=== PATIENT | female | born 1950 | race Caucasian/White ===

== ENCOUNTER 2018-07-09 13:52 | Emergency (ER) | payer MEDICARE ==
[~2018-07-09] VITALS: Ht 172.7 cm; Wt 77.3 kg
[2018-07-09] MEDS ORDERED: ULTRAM50 MG PO (14:41)
== END 2018-07-09 15:01 | disposition home or self-care (01) ==
LOC: D.ER 13:52
DX: S82.832A Other fracture of upper and lower end of left fibula, initial encounter for closed fracture (principal); W18.31XA Fall on same level due to stepping on an object, initial encounter; Y93.89 Activity, other specified; Y92.019 Unspecified place in single-family (private) house as the place of occurrence of the external cause; S92.352A Displaced fracture of fifth metatarsal bone, left foot, initial encounter for closed fracture

== ENCOUNTER 2019-01-26 05:22 | Emergency (ER) | payer MEDICARE ==
[~2019-01-26] VITALS: Ht 172.7 cm; Wt 68.2 kg
[~2019-01-26 05:22] MED LIST: ULTRAM50 MG PO
[2019-01-26 05:27] VITALS: Ht 172.7 cm; Wt 68.2 kg
[2019-01-26 05:58] LABS: BASOPHILS 0.3 % (0-2); EOSINOPHILS 2.1 % (0-7); HEMATOCRIT 42.9 % (36.0-48.0); IMMATURE GRANULOCYTES 0.1 % (0-5); LYMPHOCYTES 36.1 % (15-50); MCH 29.4 pg (26.0-34.0); MCHC 32.6 g/dL (31.0-37.0); MCV 90.1 fL (80.0-100.0); MEAN PLATELET VOLUME 11.1 fL (7.4-10.4); MONOCYTES 9.1 % (2-11); NEUTROPHILS 52.3 % (40-80); PLATELET COUNT 240 10x3/uL (130-400); RBC 4.76 10x6/uL (4.00-5.40); RDW 12.9 % (11.5-14.5); WBC 6.8 10x3/uL (4.8-10.8)
[2019-01-26 06:22] LABS: ALBUMIN 3.8 g/dL (3.4-5.0); ALKALINE PHOSPHATASE 97 U/L (46-116); ALT (SGPT) 16 U/L (10-68); BILIRUBIN - TOTAL 0.45 mg/dL (0.2-1.3); CALC OSMOLALITY 277 mosm/kg (275-300); CHLORIDE - SERUM 103 mmol/L (98-107); CREATININE - SERUM 0.8 mg/dL (0.6-1.3); GLUCOSE 96 mg/dL (74-106); POTASSIUM - SERUM 3.7 mmol/L (3.5-5.1); PROTEIN - SERUM 7.3 g/dL (6.4-8.2); SODIUM 139 mmol/L (136-145); UREA NITROGEN 13 mg/dL (7-18); eGFR NON AFRICAN AMERICAN 75 mL/min (90-120)
[2019-01-26 06:25] LABS: C-REACTIVE PROTEIN 0.4 mg/dL (0.0-0.9); MAGNESIUM - SERUM 2.1 mg/dL (1.8-2.4); TROPONIN-I < 0.017 ng/mL (0.000-0.060)
[2019-01-26 07:49] VITALS: BP 131/90
== END 2019-01-26 07:51 | disposition home or self-care (01) ==
LOC: D.ER 05:22
PROVIDERS: Family Medicine
DX: R20.2 Paresthesia of skin (principal)

== ENCOUNTER 2019-03-01 20:18 | Emergency (ER) | payer MEDICARE ==
[~2019-03-01] VITALS: Ht 172.7 cm; Wt 78.2 kg
[2019-03-01 20:23] VITALS: Ht 172.7 cm; Wt 78.2 kg
[2019-03-01] MEDS ORDERED: AUGMENTIN 875-11 TAB PO (21:05)
[2019-03-01 21:45] VITALS: BP 145/98
== END 2019-03-01 21:45 | disposition home or self-care (01) ==
LOC: D.ER 20:18
DX: S51.831A Puncture wound without foreign body of right forearm, initial encounter (principal)

== ENCOUNTER 2020-04-16 19:00 | Outpatient (CLI) | payer MEDICARE ==
[2019-03-01 20:23] VITALS: BMI 26.2
[~2020-04-16 19:00] MED LIST changes: +AUGMENTIN 875-11 TAB PO
== END 2020-04-16 23:59 | disposition home or self-care (01) ==
LOC: D.MAMMO 19:00
PROVIDERS: ATTEND Nurse Practitioner Family
DX: Z12.31 Encounter for screening mammogram for malignant neoplasm of breast (principal)

== ENCOUNTER → 2020-04-28 22:49 | Outpatient (CLI) | payer MEDICARE ==
[2019-03-01 20:23] VITALS: BMI 26.2
== END | disposition home or self-care (01) ==
LOC: D.MAMMO 13:30
PROVIDERS: ATTEND Family Medicine
DX: R92.8 Other abnormal and inconclusive findings on diagnostic imaging of breast (principal)